=== PATIENT | male | born 1995 | race Two or more races ===

== ENCOUNTER 2017-03-14 17:51 | Emergency (ER) | payer OTHER ==
[~2017-03-14] VITALS: Ht 188 cm; Wt 95.3 kg
[2017-03-14] MEDS ORDERED: ACETAMINOPHEN 325 MG TABLET PO ONE (18:45)
--- NOTE | 2017-03-14 18:46 | NUR ---
[employer] officers x2 are at bedside evaluating the patient
[2017-03-14] MEDS ORDERED: ACETAMINOPHEN ES 500 MG TABLET ONE (18:52)
--- NOTE | 2017-03-14 21:18 | NUR ---
Patient discharged to home in stable conditon WITH BROTHER TAKING PATIENT HOME. Written and verbal after care instructions given. Patient verbalizes understanding of instructions. WALKED OUT OF ER WITH STEADY GAIT
[2017-03-14 21:19] VITALS: BP 142/82
== END 2017-03-14 21:19 | disposition home or self-care (01) ==
LOC: ER 17:53
DX: S16.1XXA Strain of muscle, fascia and tendon at neck level, initial encounter (principal); S06.0X0A Concussion without loss of consciousness, initial encounter; X58.XXXA Exposure to other specified factors, initial encounter; Y93.89 Activity, other specified; Y92.89 Other specified places as the place of occurrence of the external cause; Y99.8 Other external cause status
CPT/HCPCS: 70450; 72125; 99284; A4663

== ENCOUNTER 2024-01-26 13:02 | Emergency (ER) | payer OTHER ==
[~2024-01-26] VITALS: Ht 188 cm; Wt 83.9 kg
[2024-01-26] MEDS: IV NORMAL SALINE 1000 ML BAG IV ONE (13:59)
[2024-01-26 14:04] LABS: BASOPHILS % (AUTO) 0.1 % (0.0-2.0); EOSINOPHILS # (AUTO) 0.2 K/uL (0.0-0.7); EOSINOPHILS % (AUTO) 1.3 % (0.0-7.0); HEMATOCRIT 45.9 % (36.7-47.1); HEMOGLOBIN 14.8 g/dL (12.5-16.3); LYMPHOCYTES # (AUTO) 1.3 K/uL (0.8-4.8); LYMPHOCYTES % (AUTO) 7.6 % (20.5-51.5); MEAN CORPUSCULAR HEMOGLOBIN 26.3 uug (23.8-33.4); MEAN CORPUSCULAR HGB CONC 32 g/dL (32.5-36.3); MEAN CORPUSCULAR VOLUME 81.5 fL (73.0-96.2); MONOCYTES # (AUTO) 0.8 K/uL (0.1-1.30); MONOCYTES % (AUTO) 4.3 % (0.0-11.0); NEUTROPHILS # (AUTO) 15.3 K/uL (1.8-8.9); NEUTROPHILS % (AUTO) 86.7 % (38.5-71.5); PLATELET COUNT (AUTO) 318 K/uL (152-348); RED BLOOD CELL COUNT(AUTO) 5.63 MIL/uL (4.06-5.63); RED CELL DISTRIBUTION WIDTH 14.6 % (12.1-16.2); WHITE BLOOD COUNT (AUTO) 17.6 K/uL (3.6-10.2)
[2024-01-26 14:08] LABS: DIFFERENTIAL COMMENT 1
[2024-01-26] MEDS ORDERED: SWABABLE VALVE TRANSFER SET EA MC ONE (14:10)
[2024-01-26] MEDS ORDERED: IOHEXOL 300MG/ML 100 ML INFUS..BTL ONE (14:10)
[2024-01-26] MEDS ORDERED: IV NORMAL SALINE 250 ML IV ONE (14:11)
[2024-01-26 14:13] LABS: CALCIUM 9.2 mg/dL (8.5-10.1); CREATININE 1.1 mg/dL (0.6-1.3); POTASSIUM 3.8 mmol/L (3.5-5.1)
[2024-01-26] MEDS ORDERED: KETOROLAC TROMETHAMINE 15 MG INJ ONE (15:03)
[2024-01-26] MEDS ORDERED: PIPERACILLIN/TAZOBACTAM/D5W 50 ML IV ONE (15:03)
[2024-01-26] MEDS ORDERED: DEXAMETHASONE SOD PHOSPHATE 4 MG INJ ONE (15:03)
[2024-01-26] MEDS: DEXAMETHASONE SOD PHOSPHATE 4 MG INJ IV ONE (15:14)
[2024-01-26] MEDS: PIPERACILLIN SODIUM/TAZOBACTAM 3.375 G in IV DEXTROSE 5% 50 ML IV ONE (15:14)
[2024-01-26] MEDS: KETOROLAC TROMETHAMINE 15 MG INJ IVP ONE (15:22)
[2024-01-26] MEDS ORDERED: IBUP-1955 PO (15:43)
[2024-01-26] MEDS ORDERED: AMOX-430 PO (15:43)
[2024-01-26 16:09] VITALS: BP 134/92; O2SAT 100
== END 2024-01-27 08:49 | disposition home or self-care (01) ==
LOC: ER 13:02
DX: J36 Peritonsillar abscess (principal); M54.2 Cervicalgia; Z60.2 Problems related to living alone
CPT/HCPCS: 99285; 96365; 70491; 96375; 80048; 85025; 87040 ×2; 36415; 83605; J1100; J1885; Q9967; J2543; J7040; A4606; A4663